=== PATIENT | male | born 1990 | race Two or more races ===

== ENCOUNTER 2022-12-22 12:01 | Emergency (ER) | payer MEDICAID ==
[~2022-12-22] VITALS: Ht 175.3 cm; Wt 75.0 kg
[2022-12-22 13:44] VITALS: BP 114/60; PULSE 100; RESP 18
[2022-12-22] MEDS ORDERED: NAPR-1181 PO (15:43)
[2022-12-22] MEDS ORDERED: KETOROLAC TROMETHAMINE 30 MG/ML VIAL IM ONE (15:45)
== END 2022-12-22 15:55 | disposition home or self-care (01) ==
LOC: EMS 12:01
DX: S70.12XA Contusion of left thigh, initial encounter (principal); S00.83XA Contusion of other part of head, initial encounter; Y04.8XXA Assault by other bodily force, initial encounter; Y93.89 Activity, other specified; Y92.89 Other specified places as the place of occurrence of the external cause; Y99.8 Other external cause status
CPT/HCPCS: 99285; 70450; 73552; 96372; J1885